=== PATIENT | female | born 1995 | race Two or more races ===

== ENCOUNTER 2018-10-21 01:56 | Emergency (ER) | payer SELFPAY ==
[~2018-10-21] VITALS: Ht 160 cm; Wt 72.7 kg
[2018-10-21 02:56] VITALS: BP 127/77
[2018-10-21] MEDS ORDERED: HYDROCODONE/ACETAMINOPHEN 5-325 MG TABLET PO ONE (03:15)
== END 2018-10-21 03:24 | disposition home or self-care (01) ==
LOC: EMS 01:57
DX: H60.91 Unspecified otitis externa, right ear (principal)